=== PATIENT | female | born 1965 | race Caucasian/White ===

== ENCOUNTER → 2017-04-10 | Outpatient (CLI) | payer OTHER | LOC: BMCIMAGING 15:09 | PROVIDERS: ATTEND Physician Assistant | DX: M16.0 Bilateral primary osteoarthritis of hip (principal); M25.851 Other specified joint disorders, right hip; M25.852 Other specified joint disorders, left hip ==

== ENCOUNTER → 2017-09-15 | Outpatient (CLI) | payer OTHER | LOC: BMCIMAGING 14:26 | PROVIDERS: ATTEND Physician Assistant | DX: M54.9 Dorsalgia, unspecified (principal); Z82.62 Family history of osteoporosis ==

== ENCOUNTER → 2017-10-31 | Outpatient (CLI) | payer OTHER | LOC: BMCIMAGING 15:09 | PROVIDERS: ATTEND Physician Assistant | DX: N83.202 Unspecified ovarian cyst, left side (principal) ==

== ENCOUNTER 2018-03-11 02:51 | Emergency (ER) | payer OTHER ==
[2018-03-11] MEDS ORDERED: NS 1,000 ML IV ONE (03:09)
[2018-03-11] MEDS ORDERED: ONDANSETRON 4 MG/2 ML VIAL IVP ONE (03:09)
--- NOTE | 2018-03-11 03:11 | EDPHY ---
H & P Stated Complaint: abd pain Time Seen by Provider: 03/11/18 03:01 HPI/ROS: Chief Complaint: Abdominal pain HPI: 52-year-old woman presenting with abdominal pain which began fiber 6 hr ago. Patient states that she has been having some general malaise and thought she may have had a UTI for the last several days. She has been drinking lots of water. Some mild dysuria but no urgency or frequency. Several hours ago she developed right lower quadrant pain, 6/10. Is worsened by walking or movement. Is improved by rest. She did vomit once. No diarrhea or constipation. No fevers or chills. Does not have a history of similar episodes in the past. Last menstrual period was the 20 of February. No vaginal discharge or bleeding. No prior surgeries. No medications. No allergies. She last ate any solids about 8 hr ago. Last had some clear liquids approximately 45 min ago. ROS: 10 systems were reviewed and were negative except those elements noted in the HPI. PMH: Denies Social History: No smoking Family History: non-contributory Physical Exam: Gen: Awake, Alert, No Distress HEENT: Nose: no rhinorrhea Eyes: PERRLA, EOMI Mouth: Moist mucosa Neck: Supple, no JVD Chest: nontender, lungs clear to auscultation Heart: S1, S2 normal, no murmur Abd: Soft, patient has tenderness in the right lower quadrant at McBurney's point, mild voluntary Back: no CVA tenderness, no midline tenderness Ext: no edema, non-tender Skin: no rash Neuro: CN II-XII intact, Sensation grossly intact, Strength 5/5 in bilateral upper and lower extremities - Personal History Current Tetanus Diphtheria and Acellular Pertussis (TDAP): Unsure - Medical/Surgical History Hx Asthma: No Hx Chronic Respiratory Disease: No Hx Diabetes: No Hx Cardiac Disease: No Hx Renal Disease: No Hx Cirrhosis: No Hx Alcoholism: No Hx HIV/AIDS: No Hx Splenectomy or Spleen Trauma: No - Social History Smoking Status: Never smoked Constitutional: Initial Vital Signs Temperature (C) 37.9 C 03/11/18 02:54 Heart Rate 78 03/11/18 02:54 Respiratory Rate 20 03/11/18 02:54 Blood Pressure 130/69 H 03/11/18 02:54 O2 Sat (%) 95 03/11/18 02:54 O2 Delivery Mode Room Air Allergies/Adverse Reactions: No Known Allergies Allergy (Unverified 03/11/18 02:54) Home Medications: Medication Instructions Recorded Nitrofurantoin Monohyd/M-Cryst 100 mg PO BID #8 capsule 03/11/18 [Macrobid 100 mg Capsule] Medical Decision Making - Diagnostics Imaging Results: CT scan of the abdomen pelvis shows a normal appendix. There is constipation to the proximal descending colon with an area of narrowing. This is nonspecific finding. Recommendation is for a colonoscopy. Study interpreted by Dr. Torres. Imaging: Discussed imaging studies w/ trader fixed income Radiologist ED Course/Re-evaluation: 52-year-old female with urinary symptoms, urinary tract infection and right lower quadrant abdominal pain. No appendicitis. Some constipation. No pyelonephritis. Plan will be to start on Macrobid. She does have some narrowing in her descending colon. She has had a colonoscopy over 10 years ago. Plan will be for referral for repeat colonoscopy. - Data Points Laboratory Results: Laboratory Results 03/11/18 03:15 03/11/18 03:15 03/11/18 03/11/18 03/11/18 03:15 03:15 03:15 WBC 11.79 10^3/uL H 10^3/uL (3.80-9.50) RBC 3.82 10^6/uL L 10^6/uL (4.18-5.33) Hgb 12.2 g/dL L g/dL (12.6-16.3) Hct 35.6 % L % (38.0-47.0) MCV 93.2 fL fL (81.5-99.8) MCH 31.9 pg pg (27.9-34.1) MCHC 34.3 g/dL g/dL (32.4-36.7) RDW 12.1 % % (11.5-15.2) Plt Count 220 10^3/uL 10^3/uL (150-400) MPV 9.5 fL fL (8.7-11.7) Neut % (Auto) 78.9 % H % (39.3-74.2) Lymph % (Auto) 10.3 % L % (15.0-45.0) Meigs % (Auto) 6.9 % % (4.5-13.0) Eos % (Auto) 3.0 % % (0.6-7.6) Baso % (Auto) 0.6 % % (0.3-1.7) Nucleat RBC Rel Count 0.0 % % (0.0-0.2) Absolute Neuts (auto) 9.31 10^3/uL H 10^3/uL (1.70-6.50) Absolute Lymphs (auto) 1.21 10^3/uL 10^3/uL (1.00-3.00) Absolute Monos (auto) 0.81 10^3/uL H 10^3/uL (0.30-0.80) Absolute Eos (auto) 0.35 10^3/uL 10^3/uL (0.03-0.40) Absolute Basos (auto) 0.07 10^3/uL 10^3/uL (0.02-0.10) Absolute Nucleated RBC 0.00 10^3/uL 10^3/uL (0-0.01) Immature Gran % 0.3 % % (0.0-1.1) Immature Gran # 0.04 10^3/uL 10^3/uL (0.00-0.10) Sodium 133 mEq/L L mEq/L (135-145) Potassium 4.0 mEq/L mEq/L (3.5-5.2) Chloride 100 mEq/L mEq/L (97-110) Carbon Dioxide 24 mEq/l mEq/l (22-31) Anion Gap 9 mEq/L mEq/L (6-14) BUN 11 mg/dL mg/dL (7-23) Creatinine 0.8 mg/dL mg/dL (0.6-1.0) Estimated GFR > 60 Glucose 102 mg/dL H mg/dL (70-100) Calcium 9.1 mg/dL mg/dL (8.5-10.4) Beta HCG, Qual NEGATIVE Urine Color Urine Appearance Urine pH Ur Specific [place] Urine Protein Urine Ketones Urine Blood Urine Nitrate Urine Bilirubin Urine Urobilinogen Ur Leukocyte Esterase Urine RBC Urine WBC Ur Epithelial Cells Urine Bacteria Urine Mucus Urine Glucose 03/11/18 03:00 WBC RBC Hgb Hct MCV MCH MCHC RDW Plt Count MPV Neut % (Auto) Lymph % (Auto) Meigs % (Auto) Eos % (Auto) Baso % (Auto) Nucleat RBC Rel Count Absolute Neuts (auto) Absolute Lymphs (auto) Absolute Monos (auto) Absolute Eos (auto) Absolute Basos (auto) Absolute Nucleated RBC Immature Gran % Immature Gran # Sodium Potassium Chloride Carbon Dioxide Anion Gap BUN Creatinine Estimated GFR Glucose Calcium Beta HCG, Qual Urine Color YELLOW Urine Appearance MODERATELY TURBID Urine pH 7.0 (5.0-7.5) Ur Specific [place] 1.002 (1.002-1.030) Urine Protein NEGATIVE (NEGATIVE) Urine Ketones TRACE H (NEGATIVE) Urine Blood 3+ H (NEGATIVE) Urine Nitrate NEGATIVE (NEGATIVE) Urine Bilirubin NEGATIVE (NEGATIVE) Urine Urobilinogen NEGATIVE EU EU (0.2-1.0) Ur Leukocyte Esterase 3+ H (NEGATIVE) Urine RBC 5-10 /hpf H /hpf (0-3) Urine WBC 50-182 /hpf H /hpf (0-3) Ur Epithelial Cells 1+ /lpf /lpf (NONE-1+) Urine Bacteria 2+ /hpf H /hpf (NONE SEEN) Urine Mucus TRACE /lpf /lpf (NONE-1+) Urine Glucose NEGATIVE (NEGATIVE) Medications Given: Discontinued Medications Sodium Chloride (Ns) 1,000 mls @ 0 mls/hr IV ONCE ONE; Wide Open PRN Reason: Protocol Stop: 03/11/18 03:10 Last Admin: 03/11/18 03:22 Dose: 1,000 mls Departure - Departure Disposition: Home, Routine, Self-Care Clinical Impression: Urinary tract infection Condition: Good Instructions: Nitrofurantoin (By mouth), Urinary Tract Infection in Women (ED) Additional Instructions: Please take your full course of antibiotics. I recommend that you take a probiotic or yogurt daily wall you're taking and after you finish the course of antibiotics. There is constipation your CT scan. I recommend that you take Metamucil or a stool bulking agent to your diet. There is a abnormality in your descending colon on the CT scan. The radiologist recommends a colonoscopy for further evaluation. Referrals: Nayely Zayas PA [Primary Care Provider] - As per Instructions Prescriptions: Nitrofurantoin Monohyd/M-Cryst [Macrobid 100 mg Capsule] 100 mg PO BID #8 capsule
[2018-03-11 03:29] LABS: PLATELET COUNT 220 10^3/uL (150-400)
[2018-03-11] MEDS ORDERED: IOPAMIDOL (ISOVUE 370) 100 ML BTL IV ONE (03:39)
[2018-03-11 04:08] VITALS: BP 112/65
[2018-03-11] MEDS ORDERED: NITROFURANTOIN 100MG PREPACK#2 BTL TAKEHOME ONE (04:37)
== END 2018-03-11 04:51 | disposition home or self-care (01) ==
DX: N39.0 Urinary tract infection, site not specified (principal); E86.9 Volume depletion, unspecified
CPT/HCPCS: Q9967